=== PATIENT | female | born 2000 | race African-American/Black ===

== ENCOUNTER 2022-09-01 08:45 | Emergency (ER) | payer OTHER, SELFPAY ==
--- NOTE | ~2022-09-01 | XR_ITS ---
EXAMINATION: XR HAND, LEFT CLINICAL INFORMATION: Pain after punching wall COMPARISON: None available. TECHNIQUE: PA, lateral, and oblique views of the left hand. FINDINGS: Visualized portion of the distal radius and ulna demonstrate no fracture. Carpal rows are maintained. No carpal bone fracture. No displaced metacarpal fracture although there is a thin linear lucency along the base of the fifth metacarpal with subtle overlying soft tissue swelling which may represent a nondisplaced fracture. No phalangeal fracture. No significant degenerative changes. No radiopaque foreign body. XR/XR hand LT 2V IMPRESSION: Possible nondisplaced fracture of the base of the fifth metacarpal. Correlation with point tenderness recommended. Follow-up radiographs can be obtained as clinically indicated.
[2022-09-01 08:49] VITALS: BP 128/77; PULSE 77; RESP 18; TEMP 36.5; O2SAT 98; BMI 28.4
--- NOTE | 2022-09-01 09:19 | ED.EXTPRO ---
HPI - Extremity Problem General Chief complaint: Extremity Injury, Upper Stated complaint: l hand inj Time Seen by Provider: 09/01/22 09:02 Source: patient Mode of arrival: ambulatory Limitations: no limitations History of Present Illness HPI Narrative: 21 year old female with no known past medical history presenting today with constant left lateral hand pain s/p punching a brick wall yesterday. No radiation of pain. Tetanus status unknown however declines tetanus vaccine today. Denies fever, chills, left arm pain, numbness, weakness, or tingling of the left UE. MD Complaint: joint pain (left hand) Onset (ago): day(s) (1) Pain Consistency: constant Location: left Quality: aching Radiation: none Relieving factors: nothing Exacerbating factors: nothing Associated symptoms: denies other symptoms Context: other (punched a wall) Related Data Previous Rx's Medication Instructions Recorded amoxicillin 875 mg-potassium 1 tab PO BID #14 tabs 09/01/22 clavulanate 125 mg tablet ibuprofen 600 mg tablet 600 mg PO Q8H #14 tabs 09/01/22 Allergies Allergy/AdvReac Type Severity Reaction Status Date / Time No Known Allergies Allergy Verified 09/01/22 08:51 Review of Systems Review of Systems: Yes all other systems are reviewed and are negative [facility] Past Medical History Attestation statement: The following information was validated with the patient. Source: old records reviewed and nursing notes reviewed Social History Social History Advance Directives: No Physical Exam Vital Signs: Vital Signs: Last Vital Signs Temp 98.3 F 09/01/22 10:06 Pulse 80 09/01/22 10:06 Resp 18 09/01/22 10:06 BP 103/71 09/01/22 10:06 Pulse Ox 97 09/01/22 10:06 O2 Del Method Room Air 09/01/22 10:06 BMI result Body Mass Index 28.4 Appearance: Alert. Oriented X3. No acute distress. Head: normocephalic, atraumatic. Eyes: Pupils equal, round and reactive to light. CVS: Normal heart rate and rhythm. Pulses normal. Respiratory: No respiratory distress. Breath sounds normal. Abdomen: Soft and nontender. +BS x4 Skin: Skin warm and dry. Normal skin color. Normal skin turgor. No rashes. Extremities: No lower extremity edema. No joint swelling. No deformity noted to the left hand. Small laceration noted to the ulnar aspect of the left hand. Normal full ROM with flexion and extension of all 5 left digits. NV intact distally. Capillary refill <2 seconds. Neuro/psych: Oriented X 3. No motor deficit. No sensory deficit. CN II-XII intact. Course Course Course Narrative: Xray of left hand showing question nondisplaced fracture of fifth metacarpal. Will apply ulnar gutter splint and plan to follow up outpatient with ortho for xray/ further management. Medications Administered Discontinued Medications Generic Name Dose Route Start Last Admin Trade Name Freq PRN Reason Stop Dose Admin Ibuprofen 600 mg 09/01/22 09:57 09/01/22 10:01 Ibuprofen 600 Mg Tablet PO 09/01/22 09:58 600 mg ONCE ONE Administration Medical Decision Making Medical Decision Making [facility] Narrative: 21 year old left hand dominant female with no known past medical history presenting today with constant left lateral hand pain s/p punching a brick wall yesterday. No radiation of pain. Tetanus status unknown however declines tetanus vaccine today. Vital signs stable. Physical exam significant for small laceration to the ulnar aspect of the left hand without deformity or active bleeding, full ROM to flexion and extension of the left digits, NV intact distally. Clinical suspicion for 5th MCP fracture however unlikely due to patient's full ROM. Plan: xray L hand x-ray reviewed - possible small fx 5th metacarpal base. given small lac will treat with PO abx. hand splinted w/ ulnar gutter stable for d/c home with ortho follow up. Differential Diagnosis Differential Diagnoses: The differential diagnosis associated with the presentation includes fracture, sprain, strain, laceration, FB, open fracture Independent Interpretation I performed an independent interpretation of an: Plain X-Ray Interpretation: xray of left hand with possible closed fracture of the fifth metacarpal, agree with radiologist report. Radiology Impression Discussion of test interpretation with radiology: I have reviewed the radiologist's reading. Radiologist Impression: XR hand LT 2V IMPRESSION: Possible nondisplaced fracture of the base of the fifth metacarpal. Correlation with point tenderness recommended. Follow-up radiographs can be obtained as clinically indicated. Dictated By: Aguila Van MD Prescription Management I considered prescription management with: Pain Medication and Antibiotic Critical Care Time Critical Care Time Critical Care Time: No Discharge Plan Discharge Clinical Impression: Boxer's fracture Patient Disposition: Home, Self-Care Instructions: Hand Fracture (ED), Boxer Fracture (ED) Additional Instructions: The xray of your left hand showed a possible fracture. Your hand has been splinted. Keep the splint dry and intact. Keep this splint on until you are evaluated by the orthopedic team outpatient. Call for an appointment, name and number below. Take Motrin as needed for pain. Follow up with ortho for further management. Prescriptions: New ibuprofen 600 mg tablet 600 mg PO Q8H Qty: 14 0RF amoxicillin-pot clavulanate 875-125 mg tablet 1 tab PO BID Qty: 14 0RF Ref[place]: [facility] [place] [facility] [place] Group] (Xray of left hand showing question nondisplaced fracture of fifth metacarpal w/ ulnar gutter splint placed. ) Stand Alone Forms: Work/School Release Interventions: ED Discharge Assessment Last Done: 09/01/22 11:02 Discharge Date/Time: 09/01/22 11:04
[2022-09-01] MEDS: Ibuprofen 600 MG TABLET PO (10:01)
[2022-09-01 10:06] VITALS: BP 103/71; PULSE 80; RESP 18; TEMP 36.8; O2SAT 97
== END 2022-09-01 11:04 | disposition home or self-care (01) ==
PROVIDERS: Emergency Provider Emergency Medicine Emergency Medical Services
DX: S62.92XA Unspecified fracture of left hand, initial encounter for closed fracture (principal); M79.642 Pain in left hand; Y29.XXXA Contact with blunt object, undetermined intent, initial encounter; Y93.9 Activity, unspecified; Y92.9 Unspecified place or not applicable; Y99.9 Unspecified external cause status
CPT/HCPCS: 29125; 73120; 99284

== ENCOUNTER 2022-09-06 08:58 | Outpatient (REF) | payer OTHER, SELFPAY ==
--- NOTE | ~2022-09-06 | XR_ITS ---
EXAMINATION: XR HAND, LEFT CLINICAL INFORMATION: Pain COMPARISON: 09/01/2022 TECHNIQUE: PA, lateral, and oblique views of the left hand. 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 As noted previously, a tiny fracture fragment is seen at the base of the fifth metacarpal bone medially. No displacement or additional changes identified. XR/XR hand LT min 3V IMPRESSION: Small fracture fragment is seen at the base of the fifth metacarpal bone. Alignment of the hand is normal. 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
== END 2022-09-06 08:59 | disposition home or self-care (01) ==
LOC: HO.HOSX 08:58
PROVIDERS: Visit Provider Physician Assistant
DX: S62.307A Unspecified fracture of fifth metacarpal bone, left hand, initial encounter for closed fracture (principal)
CPT/HCPCS: 73130; 99202

== ENCOUNTER 2022-09-06 14:23 | Outpatient (AMB) | payer OTHER, SELFPAY ==
--- NOTE | 2022-09-06 14:32 | A.OFFVIS_ITS ---
Intake Vital Signs 09/06/22 14:35 Height 5 ft 3 in Weight 160 lb BMI 28.3 Intake Visit Reasons: Fx-fracture of the lrft fifth metacarpal Intake Note: Papito is a 21 year old left hand dominant female who presents today for a fracture care appointment for her left fifth metacarpal fx, DOI 08/31/22. Patient reports she punched a brick wall. Patient was placed in a splint but was removed due to it undoing it self. She goes to [facility] [place] and they gave her a amanda bandage. Denies numbness and tingling. Allergies No Known Allergies Allergy (Verified 09/01/22 08:51) HPI Fx-fracture of the lrft fifth metacarpal HPI Details 21-year-old left hand dominant female who presents in the office today, as a new patient, for an evaluation of left hand pain. The patient presented to the ED on 09/01/2022 status post punching a brick wall on 08/31/2022. X-rays of the left hand were obtained. She was placed in an ulnar gutter splint and referred to orthopedics. She states she has not been wearing the splint due to it coming undone. The patient was seen at [facility] and given an AMANDA bandage. She denies numbness or tingling. [facility] Social History (Updated 09/06/22 @ 14:35 by Viraj Dvais) Alcohol intake: current Current occupational status: student Current occupation: left hand dominant Review of Systems Const All systems reviewed & are unremarkable except as noted in HPI and below Physical Exam Vital Signs: BMI result Body Mass Index 28.3 Const General: cooperative and no acute distress Orientation/consciousness: patient oriented x3 Resp Effort & Inspection: normal respiratory effort and able to speak in complete sentences Cardio Peripheral pulses: Peripheral pulses 2+ throughout Skin General skin exam: no rashes or lesions noted Neuro General: patient oriented x3 Extrem Other: Left hand: Normal to inspection. No ecchymosis, erythema, or edema. Tenderness to palpation at the base of the 5th metacarpal. Able to perform full finger flexion, extension, abduction, adduction, finger cross, okay sign, and thumbs up without deficit. Able to make a closed fist. Sensation intact. Capillary refill is brisk. Radial pulse intact. Office Procedures Fracture Care Fracture Billing Code: Fracture Billing Code Assessment & Plan Assessment & Plan (1) Fracture of fifth metacarpal bone of left hand: Code(s): S62.307A - Unspecified fracture of fifth metacarpal bone, left hand, initial en counter for closed fracture Plan Mr. Romeo is a 21-year-old left hand dominant female who presents in the office today, as a new patient, for an evaluation of left hand pain. The patient presented to the ED on 09/01/2022 status post punching a brick wall on 08/31/2022. X-rays of the left hand were obtained. She was placed in an ulnar gutter splint and referred to orthopedics. She states she has not been wearing the splint due to it coming undone. The patient was seen at [facility] and given an AMANDA bandage. She denies numbness or tingling. The patient will be placed in a velcro wrist splint, off the shelf, while in the office today. She will wear this like a cast. She may remove the splint when bathing and hand washing. I would like to see the patient back in 3 weeks for repeat x-rays and ROM check. However, the patient reports she is moving to [place] and will follow up with a provider there. Follow up will be PRN, or sooner if needed. X-rays of the left hand which were obtained while in the office today and were reviewed by me, Rosi Hernadez PA-C, revealed likely avulsion fracture at the base of the 5th metacarpal. X-rays of the left hand, obtained on 09/01/2022, revealed: Possible nondisplaced fracture of the base of the fifth metacarpal. Correlation with point tenderness recommended. Follow-up radiographs can be obtained as clinically indicated. Orders: Orders XR hand LT min 3V Today M79.643 - Pain in unspecified hand Patient Instructions: Scribed for Rosi Hernadez PA-C by sahil Baltazar scribe, on 09/06/2022 at 2:23 pm, EST. Your attestation Coding Level of Care Code New Pt Level 4 (67909) Diagnoses Fracture of fifth metacarpal bone of left hand S62.307A CPT Codes Fracture Care - Fracture Billing Code: Fracture Billing Code ([id number])
[2022-09-06 14:35] VITALS: BMI 28.3
== END 2022-09-06 15:23 | disposition home or self-care (01) ==
LOC: HO.HOS 14:23
PROVIDERS: Visit Provider Physician Assistant
DX: S62.347A Nondisplaced fracture of base of fifth metacarpal bone, left hand, initial encounter for closed fracture (principal)
CPT/HCPCS: 99204